=== PATIENT | female | born 1985 | race Caucasian/White ===

== ENCOUNTER 2017-11-11 21:46 | Emergency (ER) | payer OTHER ==
[~2017-11-11] VITALS: Ht 157.5 cm; Wt 108.5 kg
[2017-11-11 21:47] VITALS: BP 142/90
== END 2017-11-11 22:58 | disposition home or self-care (01) ==
LOC: ED 22:50
DX: G56.01 Carpal tunnel syndrome, right upper limb (principal)
CPT/HCPCS: 99284